=== PATIENT | female | born 1975 | race Caucasian/White ===

== ENCOUNTER 2019-06-24 09:19 | Inpatient (IN) | payer MEDICAID ==
[~2019-06-24] VITALS: Ht 175.3 cm; Wt 101.0 kg
[2019-06-24 11:45] LABS: BASOPHILS % (AUTO) 0.7 % (0-1); EOSINOPHILS % (AUTO) 0.7 % (0-6); HEMATOCRIT 26.1 % (35.0-45.0); HEMOGLOBIN 7.5 g/dl (12.0-16.0); LYMPHOCYTES # (AUTO) 0.4 X10'3 (1.1-4.8); LYMPHOCYTES % (AUTO) 7.7 % (21-51); MEAN CORPUSCULAR HEMOGLOBIN 19.5 PG (27.0-31.0); MEAN CORPUSCULAR HGB CONC 28.9 g/dL (33.0-36.5); MEAN CORPUSCULAR VOLUME 67.5 FL (78-98); MEAN PLATELET VOLUME 7.9 FL (7.4-10.4); MONOCYTES # (AUTO) 0.7 X10'3 (0-0.9); MONOCYTES % (AUTO) 14.5 % (2-12); NEUTROPHILS # (AUTO) 3.5 X10'3 (1.8-7.7); NEUTROPHILS % (AUTO) 76.4 % (42-75); PLATELET COUNT 252 X10'3 (140-440); RED BLOOD COUNT 3.87 X10'6 (4.20-5.60); RED CELL DISTRIBUTION WIDTH 18.7 % (11.5-14.5); WHITE BLOOD COUNT 4.6 X10'3 (4.5-11.0)
[2019-06-24 11:48] LABS: PARTIAL THROMBOPLASTIN TIME 26 SECONDS (22-32)
[2019-06-24 11:50] LABS: ALANINE AMINOTRANSFERASE 42 U/L (12-78); ALBUMIN 3.1 G/DL (3.4-5.0); ALBUMIN/GLOBULIN RATIO 0.7 (1.1-1.5); ALKALINE PHOSPHATASE 123 IU/L (46-116); ANION GAP 13 (8-16); ASPARTATE AMINO TRANSFERASE 62 U/L (10-37); BILIRUBIN,TOTAL 0.6 MG/DL (0.1-1.0); BLOOD UREA NITROGEN 18 MG/DL (7-18); BUN/CREATININE RATIO 15.4 (6.6-38.0); CALCIUM 8.3 MG/DL (8.5-10.1); CHLORIDE 104 MMOL/L (99-107); CREATININE 1.17 MG/DL (0.40-0.90); GLUCOSE 114 MG/DL (70-104); POTASSIUM 3.8 MMOL/L (3.5-5.1); SODIUM 139 MMOL/L (135-145); TOTAL CARBON DIOXIDE 21.7 MMOL/L (24-32); TOTAL PROTEIN 7.3 G/DL (6.4-8.2); eGFR 50 ML/MIN
--- NOTE | 2019-06-24 11:52 | NUR ---
PT CONTACT: RUFINA HAMMONDS [phone]
[2019-06-24] MEDS ORDERED: furosemide 10 MG/1 ML 10ml inj IV ONE (12:05)
[2019-06-24] MEDS ORDERED: nitroGLYCERIN 0.4mg/hour patch TD ONE (12:05)
[2019-06-24] MEDS ORDERED: aspirin 81mg tab.chew PO ONE (12:05)
[2019-06-24] MEDS ORDERED: carVEDilol 3.125mg tablet PO SCH (12:05)
[2019-06-24 12:06] LABS: ANISOCYTOSIS 2+; MICROCYTOSIS 2+; PLATELET ESTIMATE NORMAL
[2019-06-24 12:07] LABS: HYPOCHROMASIA 1+; LARGE PLATELETS FEW
[2019-06-24] MEDS ORDERED: mag hydrox/Alum hydrox/simeth 30ml oral suspension PO PRN (12:50)
[2019-06-24] MEDS ORDERED: acetaminophen 325mg tablet PO PRN (12:50)
[2019-06-24] MEDS ORDERED: ondansetron/PF 4mg/2ml inj IV PRN (12:50)
[2019-06-24] MEDS ORDERED: magnesium hydroxide 30ml (MOM) UD suspension PO PRN (12:50)
--- NOTE | 2019-06-24 13:14 | NUR ---
nitriles lab technician at bedside.
[2019-06-24 13:22] LABS: ETHANOL 0.213 GM/DL (0.0-0.010)
[2019-06-24] MEDS ORDERED: NO HOME MEDS (13:47)
--- NOTE | 2019-06-24 14:22 | NUR ---
CALL TO SISTER KAY FOR MEDICATION LIST, NO ANSWER, WILL CONTINUE TO TRY.
[2019-06-24] MEDS ORDERED: dextrose 50%-water 50ml dispensing syringe IV PRN (14:35)
[2019-06-24] MEDS ORDERED: thiamine 100mg/ml 2ml inj. IV ONE (14:35)
[2019-06-24 16:15] VITALS: BP 107/73
--- NOTE | 2019-06-24 16:15 | NUR ---
Patient arrive to PCU in room 3026Z via gurney and Nurse. Patients VS BP:107/73, HR:92, RR:18, O2:96%RA, Temp:98.7 oral. Bilateral lower ext pitting edema noted as well as crackles in base of bilateral lungs. Patient could not recall home medications and state she has been out of medications since Thanksgiving. Patient states SOB when ambulating and hip pain due to a fall from childhood. A 2RN skin assessment was completed as well as a MRSA nasal swab. All patients belongings were collected and put in bag in patients room. Patient is resting comfortably sleeping. Will continue to monitor.
[2019-06-24 16:18] LABS: URINE AMPHETAMINE SCREEN NEGATIVE (Neg); URINE BARBITUATE SCREEN NEGATIVE (Neg); URINE BENZODIAZEPINES SCREEN NEGATIVE (Neg); URINE CANNABINOID SCREEN POSITIVE (Neg); URINE COCAINE SCREEN NEGATIVE (Neg); URINE METHADONE SCREEN NEGATIVE (Neg); URINE OPIATE SCREEN NEGATIVE (Neg); URINE PHENCYCLIDINE SCREEN NEGATIVE (Neg)
[2019-06-24 18:00] VITALS: BP 101/62
--- NOTE | 2019-06-24 18:29 | NUR ---
Orientee documentation: I have reviewed and agree with all interventions, assessments performed and documented by ADOLPH Chavez. Orientee Medication Administration: For this medication-pass time frame, all medication were reviewed, dispensed, administered and documented per hospital policy by ADOLPH Chavez.
--- NOTE | 2019-06-24 18:41 | NUR ---
Problems reprioritized. Patient report given, questions answered & plan of care reviewed with Shilpa FARFAN. Patient stable at transfer of care.
--- NOTE | 2019-06-24 18:43 | NUR ---
Patient in room PCU 3023. I have received report from Tatiana FARFAN and had the opportunity to ask questions and assume patient care.
[2019-06-24] MEDS: carvedilol 6.25mg tablet PO SCH (19:15)
[2019-06-24] MEDS: furosemide 40mg/4ml inj IV SCH (19:16)
[2019-06-24] MEDS: LORazepam 2 mg/ml vial IV PRN ×3 (19:16→23:29)
[2019-06-24] MEDS ORDERED: heparin, porcine 5000 units/ml vial SQ SCH (20:00)
[2019-06-24 22:00] VITALS: BP 103/59
[2019-06-25] VITALS (11 sets, daily range): BP systolic 88–137; BP diastolic 56–89
[2019-06-25] MEDS: LORazepam 2 mg/ml vial IV PRN ×3 (01:17→06:55)
[2019-06-25 06:13] LABS: MEAN CORPUSCULAR HEMOGLOBIN 19.6 PG (27.0-31.0); MEAN CORPUSCULAR HGB CONC 29.2 g/dL (33.0-36.5); MEAN CORPUSCULAR VOLUME 67.2 FL (78-98); MEAN PLATELET VOLUME 8.2 FL (7.4-10.4); PLATELET COUNT 226 X10'3 (140-440); RED BLOOD COUNT 3.42 X10'6 (4.20-5.60); RED CELL DISTRIBUTION WIDTH 18.6 % (11.5-14.5); WHITE BLOOD COUNT 3.6 X10'3 (4.5-11.0)
[2019-06-25 06:16] LABS: ALBUMIN 2.8 G/DL (3.4-5.0); ANION GAP 5 (8-16); BLOOD UREA NITROGEN 26 MG/DL (7-18); BUN/CREATININE RATIO 18.6 (6.6-38.0); CALCIUM 8.6 MG/DL (8.5-10.1); CHLORIDE 103 MMOL/L (99-107); GLUCOSE 128 MG/DL (70-104); SODIUM 139 MMOL/L (135-145); TOTAL CARBON DIOXIDE 31.1 MMOL/L (24-32); eGFR 41 ML/MIN
--- NOTE | 2019-06-25 06:30 | NUR ---
Patient in room PCU 3023. I have received report from ADOLPH PATTERSON and had the opportunity to ask questions and assume patient care.
--- NOTE | 2019-06-25 06:36 | NUR ---
PAGER ID: [phone] MESSAGE: Patient Stephanie Brown Rm [id number] Patient has critical Hbg of 6.7 and Hct is 23.0 Shilpa FARFAN ext, [phone]
--- NOTE | 2019-06-25 06:52 | NUR ---
Problems reprioritized. Patient report given, questions answered & plan of care reviewed with Jordan RN.
[2019-06-25 07:28] LABS: TOTAL CELLS COUNTED 100
[2019-06-25 07:29] LABS: ANISOCYTOSIS 2+; HYPOCHROMASIA 2+; MICROCYTOSIS 2+; PLATELET ESTIMATE NORMAL
--- NOTE | 2019-06-25 07:36 | NUR ---
PAGER ID: [phone] MESSAGE: DR. BENITO, [id number]/CASSIUS. DO YOU STILL WANT HER TO HAVE HEPARIN SUB CUTANEOUS WITH H+H 6.7/23.0? [id number]. TY
[2019-06-25] MEDS ORDERED: folic acid inj. 2 MG, thiamine inj. 100 MG, MVI, adult No.4 with vit. K 10 ML in dextro... IV SCH ×4 (08:00)
[2019-06-25] MEDS: furosemide 40mg/4ml inj IV SCH ×2 (09:05→19:27)
[2019-06-25] MEDS: multivitamins, therapeutics tablet PO SCH (09:07)
[2019-06-25] MEDS: folic acid 1mg tablet PO SCH (09:07)
[2019-06-25] MEDS: carvedilol 6.25mg tablet PO SCH ×2 (09:07→19:27)
[2019-06-25] MEDS: thiamine 100mg tablet PO SCH (09:08)
--- NOTE | 2019-06-25 09:32 | NUR ---
PAGER ID: [phone] MESSAGE: DR. BENITO, 1559U/CASSIUS, PACKED CELLS READY. CONSENT IN FRONT OF CHART. NEED INFORMED CONSENT PLEASE. DEVIN [id number]. TY
[2019-06-25 10:40] LABS: HEMOGLOBIN 6.7 g/dl (12.0-16.0)
--- NOTE | 2019-06-25 11:14 | NUR ---
PAGER ID: [phone] MESSAGE: DR. BENITO,[id number]/CASSIUS, HAVE UNIT PACKED CELL WAITING FOR TRANSFUSION. NEED INFORMED CONSENT. BLOOD CONSENT IS IN THE FRONT OF CHART. DEVIN [id number]. TY
[2019-06-25] MEDS: pantoprazole 40mg Tablet.DR PO SCH (14:39)
--- NOTE | 2019-06-25 16:03 | NUR ---
SPOKE TO MARITA WOODALL OVER TELEPHONE. SHE HAD FAXED MED LIST, BIT WAS NOT READABLE. STATES "I WILL BRING ALL HER MEDICATIONS TO [facility] TOMORROW" . EXPLAINED THE PROCESS ONCE THE MEDS ARE HERE. VERBALIZED UNDERSTANDING.
--- NOTE | 2019-06-25 18:12 | NUR ---
Problems reprioritized. Patient report given, questions answered & plan of care reviewed with ADOLPH SPRINGER.
--- NOTE | 2019-06-25 18:30 | NUR ---
Patient in room PCU 3023. I have received report from Jordan FARFAN and had the opportunity to ask questions and assume patient care.
[2019-06-26 02:00] VITALS: BP 109/76
[2019-06-26 05:30] LABS: MEAN PLATELET VOLUME 8.2 FL (7.4-10.4); RED BLOOD COUNT 3.92 X10'6 (4.20-5.60)
[2019-06-26 05:31] LABS: HEMATOCRIT 26.4 % (35.0-45.0); MEAN CORPUSCULAR HEMOGLOBIN 20.4 PG (27.0-31.0); MEAN CORPUSCULAR HGB CONC 30.2 g/dL (33.0-36.5); MEAN CORPUSCULAR VOLUME 67.4 FL (78-98); PLATELET COUNT 199 X10'3 (140-440); RED CELL DISTRIBUTION WIDTH 19.2 % (11.5-14.5)
[2019-06-26 05:54] LABS: ALBUMIN 2.8 G/DL (3.4-5.0); ANION GAP 7 (8-16); BLOOD UREA NITROGEN 34 MG/DL (7-18); BUN/CREATININE RATIO 23.3 (6.6-38.0); CALCIUM 8.4 MG/DL (8.5-10.1); CHLORIDE 101 MMOL/L (99-107); CREATININE 1.46 MG/DL (0.40-0.90); GLUCOSE 138 MG/DL (70-104); SODIUM 138 MMOL/L (135-145); TOTAL CARBON DIOXIDE 30.2 MMOL/L (24-32); eGFR 39 ML/MIN
[2019-06-26 05:56] LABS: POTASSIUM 4.3 MMOL/L (3.5-5.1)
[2019-06-26 06:32] LABS: NUCLEATED RED BLOOD CELLS 1 /100WBC (0-0); PLATELET ESTIMATE NORMAL; TOTAL CELLS COUNTED 100
--- NOTE | 2019-06-26 06:32 | NUR ---
Problems reprioritized. Patient report given, questions answered & plan of care reviewed with Siomara FARFAN.
[2019-06-26 06:33] LABS: ANISOCYTOSIS 2+; HYPOCHROMASIA 2+; MICROCYTOSIS 2+
--- NOTE | 2019-06-26 06:40 | NUR ---
Patient in room PCU 3023. I have received report from Renee FARFAN and had the opportunity to ask questions and assume patient care. Patient sleeping and in no distress. Will continue to monitor.
[2019-06-26 07:00] VITALS: BP 116/82
[2019-06-26] MEDS: furosemide 40mg/4ml inj IV SCH ×3 (08:00→19:28)
[2019-06-26] MEDS: thiamine 100mg tablet PO SCH (08:52)
[2019-06-26] MEDS: folic acid 1mg tablet PO SCH (08:52)
[2019-06-26] MEDS: carvedilol 6.25mg tablet PO SCH ×2 (08:52→19:28)
[2019-06-26] MEDS: multivitamins, therapeutics tablet PO SCH (08:53)
[2019-06-26] MEDS: pantoprazole 40mg Tablet.DR PO SCH (08:53)
[2019-06-26 11:00] VITALS: BP 108/68
[2019-06-26] MEDS ORDERED: LORazepam 2 mg/ml vial IV PRN (14:35)
[2019-06-26 15:00] VITALS: BP 124/56
[2019-06-26 17:07] LABS: OCCULT BLOOD STOOL NEGATIVE (Neg)
[2019-06-26] MEDS ORDERED: SPIR25TA5 PO (17:14)
[2019-06-26] MEDS ORDERED: PYRI25TA4 PO (17:14)
[2019-06-26] MEDS ORDERED: CARV3.12 PO (17:14)
[2019-06-26] MEDS ORDERED: FURO40TA4 PO (17:14)
[2019-06-26] MEDS ORDERED: LISI10TA4 PO (17:14)
[2019-06-26] MEDS ORDERED: POTA10TA36 PO (17:14)
[2019-06-26] MEDS ORDERED: FOLI0.4T2 PO (17:14)
--- NOTE | 2019-06-26 17:19 | NUR ---
PAGER ID: [phone] MESSAGE: re [id number] Stephanie Tenorio. Pts home medications have been reconciled. Please review. Also, occult stool was negative. Thanks, Siomara
[2019-06-26 18:00] VITALS: BP 128/79
[2019-06-26] MEDS: LORazepam 1 MG tablet PO PRN ×2 (19:32→21:04)
[2019-06-26 22:00] VITALS: BP 120/82
[2019-06-27] MEDS: LORazepam 1 MG tablet PO PRN ×3 (00:35→07:52)
[2019-06-27 02:00] VITALS: BP 107/78
[2019-06-27 05:16] LABS: HEMOGLOBIN 8.4 g/dl (12.0-16.0); MEAN CORPUSCULAR HGB CONC 29.9 g/dL (33.0-36.5)
[2019-06-27 05:18] LABS: HEMATOCRIT 27.9 % (35.0-45.0); MEAN CORPUSCULAR HEMOGLOBIN 20.4 PG (27.0-31.0); MEAN PLATELET VOLUME 8.4 FL (7.4-10.4); PLATELET COUNT 216 X10'3 (140-440); RED CELL DISTRIBUTION WIDTH 19.6 % (11.5-14.5); WHITE BLOOD COUNT 4.1 X10'3 (4.5-11.0)
[2019-06-27 05:30] LABS: ALBUMIN 2.9 G/DL (3.4-5.0); ANION GAP 5 (8-16); BLOOD UREA NITROGEN 38 MG/DL (7-18); BUN/CREATININE RATIO 25.3 (6.6-38.0); CALCIUM 8.1 MG/DL (8.5-10.1); CHLORIDE 98 MMOL/L (99-107); GLUCOSE 130 MG/DL (70-104); POTASSIUM 3.8 MMOL/L (3.5-5.1); SODIUM 138 MMOL/L (135-145); TOTAL CARBON DIOXIDE 34.8 MMOL/L (24-32); eGFR 38 ML/MIN
[2019-06-27 06:00] VITALS: BP 105/72
--- NOTE | 2019-06-27 06:16 | NUR ---
Problems reprioritized. Patient report given, questions answered & plan of care reviewed with Kathy Murphy RN.
[2019-06-27 06:22] LABS: ANISOCYTOSIS 2+; MICROCYTOSIS 2+; PLATELET ESTIMATE NORMAL; TOTAL CELLS COUNTED 100
[2019-06-27 06:23] LABS: HYPOCHROMASIA 1+; POLYCHROMASIA FEW
--- NOTE | 2019-06-27 06:30 | NUR ---
Patient in room PCU 3023. I have received report from ADOLPH Tapia and had the opportunity to ask questions and assume patient care.
--- NOTE | 2019-06-27 06:59 | NUR ---
Patient in room PCU 3023. I have received report from Regina FARFAN and had the opportunity to ask questions and assume patient care.
[2019-06-27] MEDS: multivitamins, therapeutics tablet PO SCH (07:42)
[2019-06-27] MEDS: pantoprazole 40mg Tablet.DR PO SCH (07:42)
[2019-06-27] MEDS: folic acid 1mg tablet PO SCH (07:42)
[2019-06-27] MEDS: thiamine 100mg tablet PO SCH (07:43)
[2019-06-27] MEDS: carvedilol 6.25mg tablet PO SCH (07:43)
[2019-06-27] MEDS: furosemide 40mg/4ml inj IV SCH (07:44)
[2019-06-27 11:00] VITALS: BP 91/55
[2019-06-27] MEDS ORDERED: PANT40TA4 PO (12:08)
[2019-06-27] MEDS ORDERED: CARV6.253 PO (12:08)
--- NOTE | 2019-06-27 14:28 | NUR ---
Orientee documentation: I have reviewed and agree with all interventions, assessments performed and documented by ADOLPH Terrell.
--- NOTE | 2019-06-27 14:28 | NUR ---
Orientee Medication Administration: For this medication-pass time frame, all medication were reviewed, dispensed, administered and documented per hospital policy by ADOLPH Terrell.
--- NOTE | 2019-06-27 15:21 | NUR ---
PIV discontinued and clean dry dressing in place, walked down to lobby to private vehicle @ 1832
--- NOTE | 2019-06-27 15:22 | NUR ---
Patient is stable for discharge per MD orders. All discharge instructions reveied and questions answered. Patients prescriptions e scripted to les in [facility] pharmacy. PIV discontinued, Tele monitor discontinued and belongings gathered and sent with patient. Patient wheeled to front of hospital by hospital personal and entered a private vehicle with family member.
[2019-06-28] MEDS ORDERED: LORazepam 1 MG tablet PO PRN (14:35)
[2019-06-28] MEDS ORDERED: LORazepam 2 mg/ml vial IV PRN (14:35)
== END 2019-06-27 14:28 | disposition home or self-care (01) | DRG 194 ==
LOC: ER 09:19 → ED HOLD 12:49 → PCU 3S 16:14
PROVIDERS: ADMIT Family Medicine; ATTEND Family Medicine
PROC: 30233N1 Transfusion of Nonautologous Red Blood Cells into Peripheral Vein, Percutaneous Approach (ICD-10-PCS; principal; 2019-06-25)
DX: I13.0 Hypertensive heart and chronic kidney disease with heart failure and stage 1 through stage 4 chronic kidney disease, or unspecified chronic kidney disease (principal); I21.A1 Myocardial infarction type 2; F10.129 Alcohol abuse with intoxication, unspecified; F12.90 Cannabis use, unspecified, uncomplicated; D50.9 Iron deficiency anemia, unspecified; F15.10 Other stimulant abuse, uncomplicated; N18.9 Chronic kidney disease, unspecified; I50.23 Acute on chronic systolic (congestive) heart failure; F17.210 Nicotine dependence, cigarettes, uncomplicated; Z88.0 Allergy status to penicillin; Z71.51 Drug abuse counseling and surveillance of drug abuser
CPT/HCPCS: 36415; 36430; 71046; 76937; 80048; 80053; 80305; 80320; 82272; 83880; 84484; 85025; 85610; 85730; 86885; 86900; 86901; 86920; 87081; 93005; 93306; 96374; 99285; G0378; J1644; J1940; J2060; J3411; P9016

== ENCOUNTER 2019-10-05 05:30 | Inpatient (IN) | payer MEDICAID ==
[2019-10-05] VITALS (15 sets, daily range): BP systolic 82–104; BP diastolic 35–68
[~2019-10-05] VITALS: Ht 172.7 cm; Wt 82.5 kg
[~2019-10-05 05:30] MED LIST: CARV6.253 PO; FOLI0.4T2 PO; FURO40TA4 PO; LISI10TA4 PO; NO HOME MEDS; PANT40TA4 PO; POTA10TA36 PO; PYRI25TA4 PO; SPIR25TA5 PO
[2019-10-05] MEDS ORDERED: pantoprazole 40 MG vial IV ONE (05:45)
[2019-10-05] MEDS ORDERED: CARV3.122 PO (05:47)
[2019-10-05] MEDS ORDERED: ONDA8TAB65 PO (05:47)
[2019-10-05 05:56] LABS: CLARITY,URINE SLIGHTLY CLOUDY (Clear); COLOR,URINE YELLOW (Yellow); GLUCOSE, URINE 100 mg/dl (Neg); KETONES,URINE NEGATIVE (Neg); LEUKOCYTE ESTERASE ,URINE MODERATE (Neg); NITRITES, URINE NEGATIVE (Neg); OCCULT BLOOD,URINE LARGE (Neg); PH,URINE 5.5 (4.8-8.0); PROTEIN,URINE 100 mg/dl (Neg); UROBILINOGEN,URINE 0.2 E.U/dL (0.2-1.0)
[2019-10-05 06:01] LABS: UA COLLECTION TYPE FOLEY CATH
[2019-10-05 06:03] LABS: MUCUS STRANDS FEW /LPF (Neg); SQUAMOUS EPITHELIAL CELL,UR MODERATE /LPF (FEW); URINE HCG NEGATIVE (NEG)
[2019-10-05 06:04] LABS: AMORPHOUS URATES 2+; BACTERIA,URINE FEW /HPF (Neg); RENAL CELLS, URINE FEW /HPF; TRANSITIONAL EPI CELLS,URINE FEW /HPF
[2019-10-05] MEDS: pantoprazole 40MG/NS 100ML BAG 100 ML IV SCH ×4 (06:04→20:39)
[2019-10-05 06:25] LABS: BASOPHILS % (AUTO) 0.3 % (0-1); EOSINOPHILS % (AUTO) 0.4 % (0-6); HEMATOCRIT 26.1 % (35.0-45.0); HEMOGLOBIN 8.8 g/dl (12.0-16.0); LYMPHOCYTES # (AUTO) 0.5 X10'3 (1.1-4.8); MEAN CORPUSCULAR HEMOGLOBIN 30.3 PG (27.0-31.0); MEAN CORPUSCULAR HGB CONC 33.7 g/dL (33.0-36.5); MEAN CORPUSCULAR VOLUME 89.9 FL (78-98); MEAN PLATELET VOLUME 8.3 FL (7.4-10.4); MONOCYTES # (AUTO) 0.5 X10'3 (0-0.9); MONOCYTES % (AUTO) 7.1 % (2-12); NEUTROPHILS # (AUTO) 5.6 X10'3 (1.8-7.7); NEUTROPHILS % (AUTO) 85.2 % (42-75); PLATELET COUNT 154 X10'3 (140-440); RED CELL DISTRIBUTION WIDTH 15.8 % (11.5-14.5); WHITE BLOOD COUNT 6.6 X10'3 (4.5-11.0)
[2019-10-05] MEDS ORDERED: calcium chloride 100 MG/1 ML inj IV ONE (06:30)
[2019-10-05 06:32] LABS: ALANINE AMINOTRANSFERASE 54 U/L (12-78); ALBUMIN 3.4 G/DL (3.4-5.0); ALBUMIN/GLOBULIN RATIO 1.2 (1.1-1.5); ALKALINE PHOSPHATASE 164 IU/L (46-116); ANION GAP 24 (8-16); ASPARTATE AMINO TRANSFERASE 113 U/L (10-37); BILIRUBIN,TOTAL 1.5 MG/DL (0.1-1.0); BLOOD UREA NITROGEN 88 MG/DL (7-18); CALCIUM 7.7 MG/DL (8.5-10.1); CHLORIDE 79 MMOL/L (99-107); GLUCOSE 165 MG/DL (70-104); MAGNESIUM 1.2 MG/DL (1.5-2.4); TOTAL PROTEIN 6.3 G/DL (6.4-8.2); eGFR 5 ML/MIN
[2019-10-05 06:33] LABS: POTASSIUM 5.6 MMOL/L (3.5-5.1)
[2019-10-05 06:35] LABS: SODIUM 115 MMOL/L (135-145)
[2019-10-05 06:36] LABS: TOTAL CARBON DIOXIDE 12.5 MMOL/L (24-32)
[2019-10-05] MEDS ORDERED: normal saline 1000ml 1,000 ML IV SCH (06:38)
[2019-10-05] MEDS ORDERED: acetaminophen 650mg rectal suppository RC PRN (06:40)
[2019-10-05] MEDS ORDERED: magnesium hydroxide 30ml (MOM) UD suspension PO PRN (06:40)
[2019-10-05] MEDS ORDERED: octreotide inj. 1,250 MCG in normal saline 250ml IV soln 250 ML IV SCH (06:40)
[2019-10-05] MEDS ORDERED: ondansetron/PF 4mg/2ml inj IV PRN (06:40)
[2019-10-05] MEDS ORDERED: potassium Cl 20 mEq SR tablet PO PRN (06:40)
[2019-10-05] MEDS ORDERED: LIDOcaine 2% 10ml TOPICAL JELLY (Urojet) TP ONE (06:40)
[2019-10-05] MEDS ORDERED: potassium CL 10mEq/100ml bag 100 ML IV PRN ×2 (06:40)
[2019-10-05] MEDS: K, MAG and/or Phos replacement - Verify level? MC SCH ×2 (06:40→08:00)
[2019-10-05] MEDS ORDERED: acetaminophen 325mg tablet PO PRN ×2 (06:40)
[2019-10-05] MEDS ORDERED: octreotide inj. 1,250 MCG in normal saline 250ml IV soln 243.75 ML IV SCH (06:50)
--- NOTE | 2019-10-05 07:55 | NUR ---
Received from ER. Report from Iris. Oriented pt to unit and plan of care. Py appears fatigued but able to answer questions.
[2019-10-05 09:22] LABS: CLARITY,URINE SLIGHTLY CLOUDY (Clear); COLOR,URINE YELLOW (Yellow); GLUCOSE, URINE 100 mg/dl (Neg); KETONES,URINE NEGATIVE (Neg); LEUKOCYTE ESTERASE ,URINE MODERATE (Neg); NITRITES, URINE NEGATIVE (Neg); OCCULT BLOOD,URINE LARGE (Neg); PROTEIN,URINE 100 mg/dl (Neg); UROBILINOGEN,URINE 0.2 E.U/dL (0.2-1.0)
[2019-10-05 09:28] LABS: UA COLLECTION TYPE FOLEY CATH
[2019-10-05 09:29] LABS: WBC,URINE 30-50 /HPF (0-4)
[2019-10-05 09:30] LABS: BACTERIA,URINE FEW /HPF (Neg); MUCUS STRANDS FEW /LPF (Neg); SQUAMOUS EPITHELIAL CELL,UR FEW /LPF (FEW)
[2019-10-05 09:47] LABS: UA EOSINOPHILS NO EOS /HPF
[2019-10-05] MEDS: thiamine inj. 100 MG, MVI, adult No.4 with vit. K 10 ML in dextrose 5% water 500ml 500 ML IV SCH ×3 (11:35)
[2019-10-05] MEDS ORDERED: fentaNYL/PF 50MCG/1 ML 2ML syringe ONE (11:44)
[2019-10-05] MEDS ORDERED: LIDOcaine Viscous 15ml cup ONE (11:44)
[2019-10-05] MEDS ORDERED: MIDAZolam 5mg/5ml vial ONE (11:44)
[2019-10-05 12:24] LABS: ALBUMIN 3.1 G/DL (3.4-5.0); ANION GAP 17 (8-16); BLOOD UREA NITROGEN 86 MG/DL (7-18); BUN/CREATININE RATIO 11.3 (6.6-38.0); CALCIUM 8.4 MG/DL (8.5-10.1); CHLORIDE 86 MMOL/L (99-107); GLUCOSE 81 MG/DL (70-104); POTASSIUM 5.1 MMOL/L (3.5-5.1); eGFR 6 ML/MIN
[2019-10-05 12:34] LABS: SODIUM 116 MMOL/L (135-145)
[2019-10-05] MEDS: CefTRIAXone/D5W-Rocephin 1gm 50 ML IV SCH (15:14)
[2019-10-05] MEDS: sodium bicarbonate (8.4%) inj. 150 MEQ in dextrose 5%-water 1,000 ML IV SCH (15:15)
--- NOTE | 2019-10-05 17:31 | NUR ---
EGD performed at bedside. BP dropped to 70/30's. 1L of NS bolus started. BP now up to 100/50's. Pt has had 2 small BM's today, both brown, no blood noted.
[2019-10-05] MEDS ORDERED: chlordiazePOXIDE 25mg capsule PO PRN (17:45)
--- NOTE | 2019-10-05 18:18 | NUR ---
Problems reprioritized. Patient report given, questions answered & plan of care reviewed with Keaton.
[2019-10-05 20:40] LABS: HEMATOCRIT 26.4 % (35.0-45.0); HEMOGLOBIN 8.9 g/dl (12.0-16.0); MEAN CORPUSCULAR HGB CONC 33.6 g/dL (33.0-36.5); MEAN CORPUSCULAR VOLUME 89.3 FL (78-98); MEAN PLATELET VOLUME 8.2 FL (7.4-10.4); PLATELET COUNT 125 X10'3 (140-440); RED BLOOD COUNT 2.96 X10'6 (4.20-5.60); RED CELL DISTRIBUTION WIDTH 16.7 % (11.5-14.5)
[2019-10-06] VITALS (24 sets, daily range): BP systolic 80–117; BP diastolic 42–70
--- NOTE | 2019-10-06 00:25 | NUR ---
Patient in room CICU 2009. I have received report from Asael FARFAN and had the opportunity to ask questions and assume patient care for remainder of shift.
[2019-10-06] MEDS: pantoprazole 40MG/NS 100ML BAG 100 ML IV SCH ×3 (01:34→11:44)
[2019-10-06] MEDS: sodium bicarbonate (8.4%) inj. 150 MEQ in dextrose 5%-water 1,000 ML IV SCH ×3 (01:35→20:50)
[2019-10-06] MEDS: morphine 2 MG/ML inj. syringe IV PRN ×3 (04:04→18:56)
[2019-10-06 05:20] LABS: PARTIAL THROMBOPLASTIN TIME 30 SECONDS (22-32)
[2019-10-06 05:34] LABS: ALANINE AMINOTRANSFERASE 48 U/L (12-78); ALBUMIN 2.8 G/DL (3.4-5.0); ALKALINE PHOSPHATASE 162 IU/L (46-116); ANION GAP 15 (8-16); ASPARTATE AMINO TRANSFERASE 83 U/L (10-37); BILIRUBIN,TOTAL 2.1 MG/DL (0.1-1.0); BLOOD UREA NITROGEN 84 MG/DL (7-18); BUN/CREATININE RATIO 11.8 (6.6-38.0); CALCIUM 7.8 MG/DL (8.5-10.1); CHLORIDE 86 MMOL/L (99-107); CREATININE 7.11 MG/DL (0.40-0.90); GLUCOSE 125 MG/DL (70-104); PHOSPHORUS 3.5 MG/DL (2.3-4.5); POTASSIUM 4.2 MMOL/L (3.5-5.1); TOTAL CARBON DIOXIDE 17.9 MMOL/L (24-32); TOTAL PROTEIN 5.7 G/DL (6.4-8.2); eGFR 6 ML/MIN
[2019-10-06 05:38] LABS: SODIUM 119 MMOL/L (135-145)
[2019-10-06 05:39] LABS: MAGNESIUM 0.9 MG/DL (1.5-2.4)
[2019-10-06] MEDS ORDERED: magnesium 2GM in 50ml NS 50 ML IV ONE (06:15)
--- NOTE | 2019-10-06 06:35 | NUR ---
Problems reprioritized. Patient report given, questions answered & plan of care reviewed with Siomara/Frantz FARFAN.
[2019-10-06 06:58] LABS: BASOPHILS % (AUTO) 0.5 % (0-1); EOSINOPHILS # (AUTO) 0.1 X10'3 (0-0.9); EOSINOPHILS % (AUTO) 1.1 % (0-6); HEMATOCRIT 23.7 % (35.0-45.0); LYMPHOCYTES # (AUTO) 0.6 X10'3 (1.1-4.8); MEAN CORPUSCULAR HEMOGLOBIN 30.1 PG (27.0-31.0); MEAN CORPUSCULAR HGB CONC 33.9 g/dL (33.0-36.5); MONOCYTES # (AUTO) 0.6 X10'3 (0-0.9); MONOCYTES % (AUTO) 12.1 % (2-12); NEUTROPHILS # (AUTO) 3.7 X10'3 (1.8-7.7); NEUTROPHILS % (AUTO) 74.3 % (42-75); PLATELET COUNT 118 X10'3 (140-440); RED BLOOD COUNT 2.67 X10'6 (4.20-5.60); RED CELL DISTRIBUTION WIDTH 16.7 % (11.5-14.5)
[2019-10-06] MEDS: K, MAG and/or Phos replacement - Verify level? MC SCH (08:00)
[2019-10-06] MEDS: thiamine inj. 100 MG, MVI, adult No.4 with vit. K 10 ML in dextrose 5% water 500ml 500 ML IV SCH ×3 (08:00)
[2019-10-06] MEDS: thiamine 100mg tablet PO SCH (09:17)
[2019-10-06] MEDS: multivitamins, therapeutics tablet PO SCH (09:17)
[2019-10-06] MEDS: CefTRIAXone/D5W-Rocephin 1gm 50 ML IV SCH (09:17)
[2019-10-06] MEDS ORDERED: normal saline 1000ml 1,000 ML IV ONE (17:05)
--- NOTE | 2019-10-06 18:24 | NUR ---
Patient in room CICU 2009. I have received report from ADOLPH Stringer and had the opportunity to ask questions and assume patient care. Patient was sleeping when I went into room and woke easily, she is now on the bedpan.
[2019-10-06] MEDS: pantoprazole 40 MG vial IV SCH (20:50)
[2019-10-07] VITALS (17 sets, daily range): BP systolic 92–129; BP diastolic 47–99
[2019-10-07] MEDS: morphine 2 MG/ML inj. syringe IV PRN ×2 (00:04→08:17)
[2019-10-07 04:59] LABS: BASOPHILS % (AUTO) 0.2 % (0-1); EOSINOPHILS # (AUTO) 0.1 X10'3 (0-0.9); EOSINOPHILS % (AUTO) 1.5 % (0-6); HEMATOCRIT 25.3 % (35.0-45.0); HEMOGLOBIN 8.4 g/dl (12.0-16.0); LYMPHOCYTES # (AUTO) 0.7 X10'3 (1.1-4.8); LYMPHOCYTES % (AUTO) 12.8 % (21-51); MEAN CORPUSCULAR HEMOGLOBIN 29.7 PG (27.0-31.0); MEAN CORPUSCULAR HGB CONC 33.3 g/dL (33.0-36.5); MEAN CORPUSCULAR VOLUME 89.3 FL (78-98); MEAN PLATELET VOLUME 8.3 FL (7.4-10.4); MONOCYTES # (AUTO) 0.5 X10'3 (0-0.9); MONOCYTES % (AUTO) 9.7 % (2-12); NEUTROPHILS # (AUTO) 3.9 X10'3 (1.8-7.7); NEUTROPHILS % (AUTO) 75.8 % (42-75); PLATELET COUNT 107 X10'3 (140-440); RED BLOOD COUNT 2.83 X10'6 (4.20-5.60); RED CELL DISTRIBUTION WIDTH 16.9 % (11.5-14.5); WHITE BLOOD COUNT 5.1 X10'3 (4.5-11.0)
[2019-10-07 05:11] LABS: PARTIAL THROMBOPLASTIN TIME 27 SECONDS (22-32)
[2019-10-07 05:15] LABS: ALANINE AMINOTRANSFERASE 43 U/L (12-78); ALBUMIN 2.5 G/DL (3.4-5.0); ALBUMIN/GLOBULIN RATIO 0.8 (1.1-1.5); ALKALINE PHOSPHATASE 159 IU/L (46-116); ANION GAP 12 (8-16); ASPARTATE AMINO TRANSFERASE 64 U/L (10-37); BILIRUBIN,TOTAL 2.1 MG/DL (0.1-1.0); BLOOD UREA NITROGEN 75 MG/DL (7-18); BUN/CREATININE RATIO 13.5 (6.6-38.0); CALCIUM 7.6 MG/DL (8.5-10.1); CHLORIDE 88 MMOL/L (99-107); CREATININE 5.55 MG/DL (0.40-0.90); GLUCOSE 112 MG/DL (70-104); MAGNESIUM 1.1 MG/DL (1.5-2.4); PHOSPHORUS 2.9 MG/DL (2.3-4.5); POTASSIUM 3.4 MMOL/L (3.5-5.1); SODIUM 123 MMOL/L (135-145); TOTAL CARBON DIOXIDE 23.2 MMOL/L (24-32); TOTAL PROTEIN 5.5 G/DL (6.4-8.2); eGFR 8 ML/MIN
--- NOTE | 2019-10-07 06:10 | NUR ---
Problems reprioritized. Patient report given, questions answered & plan of care reviewed with ADOLPH Galindo.
--- NOTE | 2019-10-07 06:15 | NUR ---
Received report from Mallorie FARFAN, [facility] care.
--- NOTE | 2019-10-07 07:30 | NUR ---
Collected stool specimen to be sent for occult. Hx: Recent GI bleed and hemorrhoid. Addendum: 10/07/19 at 0742 by Josie Patton RN Amended: Links added.
[2019-10-07] MEDS: sodium bicarbonate (8.4%) inj. 150 MEQ in dextrose 5%-water 1,000 ML IV SCH (08:15)
[2019-10-07] MEDS: CefTRIAXone/D5W-Rocephin 1gm 50 ML IV SCH (08:16)
[2019-10-07] MEDS: multivitamins, therapeutics tablet PO SCH (08:17)
[2019-10-07] MEDS: thiamine 100mg tablet PO SCH (08:17)
[2019-10-07] MEDS: pantoprazole 40 MG vial IV SCH (08:17)
[2019-10-07] MEDS: folic acid 1mg tablet PO SCH (08:17)
[2019-10-07] MEDS: potassium Cl 20 mEq SR tablet PO PRN ×2 (09:03→13:28)
--- NOTE | 2019-10-07 10:38 | NUR ---
ICU rounds performed, made slitter and rewinder aware of low Mag 1.1- no orders received to replace, made aware of stool specimen obtained from patient-suspecting it's blood from hemorrhoids rather than GI bleed. According to Dr. Dobson with Na+ > 120 may transfer to Telemetry with tele.
[2019-10-07 12:04] LABS: OCCULT BLOOD STOOL POSITIVE (Neg)
--- NOTE | 2019-10-07 12:05 | NUR ---
RECEIVED TELEPHONE REPORT FROM ADOLPH ALLEN
--- NOTE | 2019-10-07 12:06 | NUR ---
Gave report to Jordan FARFAN at this time, will transfer patient to Tele room 3024B on tele #[id number].
--- NOTE | 2019-10-07 12:50 | NUR ---
Patient transferred to room 3024 B at this time, transferred care to Jordan duran RN.
--- NOTE | 2019-10-07 14:15 | NUR ---
RECEIVED FROM ICU, AGREE WITH PRIOR ASSESSMENT.
--- NOTE | 2019-10-07 18:36 | NUR ---
Problems reprioritized. Patient report given, questions answered & plan of care reviewed with ADOLPH PATTERSON.
--- NOTE | 2019-10-07 18:48 | NUR ---
Patient in room PCU 3024. I have received report from Jordan FARFAN and had the opportunity to ask questions and assume patient care. Patient was awake during report and resting comfortably.
--- NOTE | 2019-10-07 20:00 | NUR ---
Since patient has already received a total of 30mEq K-dur replacement today (one 20mEq dose and one 10mEq dose), no further replacement will be given tonight because she should have gotten a total of 30mEq replacement (10mEq x 3 doses) for a Creatinine of greater than 2.5 instead of the typical dose of 20mEq x3 doses for a Potassium of 3.4.
[2019-10-07] MEDS: lactobacillus rhamnosus 10,000 MMU CELLS/CAPSULE PO SCH (20:14)
[2019-10-07] MEDS: pantoprazole 40mg Tablet.DR PO SCH (20:14)
[2019-10-07] MEDS: morphine 4 MG/ML inj SYRINge IV PRN (20:15)
[2019-10-08] MEDS: morphine 4 MG/ML inj SYRINge IV PRN (01:16)
[2019-10-08 02:00] VITALS: BP 102/61
--- NOTE | 2019-10-08 04:39 | NUR ---
Orientee documentation: I have reviewed and agree with all interventions, assessments performed and documented by Guerline FARFAN. Orientee Medication Administration: For this medication-pass time frame, all medication were reviewed, dispensed, administered and documented per hospital policy by Guerline FARFAN.
[2019-10-08 06:05] LABS: HEMOGLOBIN 8.2 g/dl (12.0-16.0); MEAN PLATELET VOLUME 8.6 FL (7.4-10.4); MONOCYTES # (AUTO) 0.4 X10'3 (0-0.9); PLATELET COUNT 108 X10'3 (140-440); WHITE BLOOD COUNT 3.9 X10'3 (4.5-11.0)
[2019-10-08 06:09] LABS: BASOPHILS % (AUTO) 0.5 % (0-1); EOSINOPHILS % (AUTO) 0.9 % (0-6); HEMATOCRIT 24.6 % (35.0-45.0); LYMPHOCYTES # (AUTO) 0.6 X10'3 (1.1-4.8); LYMPHOCYTES % (AUTO) 16.4 % (21-51); MEAN CORPUSCULAR HGB CONC 33.5 g/dL (33.0-36.5); MEAN CORPUSCULAR VOLUME 89.6 FL (78-98); MONOCYTES % (AUTO) 10.5 % (2-12); NEUTROPHILS # (AUTO) 2.8 X10'3 (1.8-7.7); NEUTROPHILS % (AUTO) 71.7 % (42-75); RED BLOOD COUNT 2.75 X10'6 (4.20-5.60); RED CELL DISTRIBUTION WIDTH 16.6 % (11.5-14.5)
[2019-10-08 06:15] LABS: ALANINE AMINOTRANSFERASE 53 U/L (12-78); ALBUMIN 2.5 G/DL (3.4-5.0); ALBUMIN/GLOBULIN RATIO 0.8 (1.1-1.5); ALKALINE PHOSPHATASE 210 IU/L (46-116); ANION GAP 9 (8-16); ASPARTATE AMINO TRANSFERASE 89 U/L (10-37); BILIRUBIN,TOTAL 2.7 MG/DL (0.1-1.0); BLOOD UREA NITROGEN 69 MG/DL (7-18); BUN/CREATININE RATIO 16.1 (6.6-38.0); CALCIUM 7.9 MG/DL (8.5-10.1); CHLORIDE 91 MMOL/L (99-107); CREATININE 4.29 MG/DL (0.40-0.90); GLUCOSE 86 MG/DL (70-104); MAGNESIUM 1.1 MG/DL (1.5-2.4); PHOSPHORUS 2.7 MG/DL (2.3-4.5); POTASSIUM 3.8 MMOL/L (3.5-5.1); SODIUM 129 MMOL/L (135-145); TOTAL CARBON DIOXIDE 28.7 MMOL/L (24-32); TOTAL PROTEIN 5.5 G/DL (6.4-8.2); eGFR 11 ML/MIN
--- NOTE | 2019-10-08 06:26 | NUR ---
Problems reprioritized. Patient report given, questions answered & plan of care reviewed with Kathy FARFAN.
--- NOTE | 2019-10-08 06:33 | NUR ---
Patient in room PCU 3024. I have received report from ADOLPH Massey/Ashwini RN and had the opportunity to ask questions and assume patient care. Pt resting comfortably during bedside report.
[2019-10-08 07:00] VITALS: BP 107/60
[2019-10-08 07:31] LABS: ANISOCYTOSIS 1+; PLATELET ESTIMATE DECREASED; TOTAL CELLS COUNTED 100
[2019-10-08 07:32] LABS: LARGE PLATELETS FEW
[2019-10-08] MEDS: pantoprazole 40mg Tablet.DR PO SCH ×2 (08:02→19:45)
[2019-10-08] MEDS: thiamine 100mg tablet PO SCH (08:02)
[2019-10-08] MEDS: multivitamins, therapeutics tablet PO SCH (08:02)
[2019-10-08] MEDS: lactobacillus rhamnosus 10,000 MMU CELLS/CAPSULE PO SCH (08:02)
[2019-10-08] MEDS: folic acid 1mg tablet PO SCH (08:02)
[2019-10-08] MEDS: CefTRIAXone/D5W-Rocephin 1gm 50 ML IV SCH (08:03)
[2019-10-08] MEDS: morphine 2 MG/ML inj. syringe IV PRN ×2 (08:23→19:46)
[2019-10-08 11:00] VITALS: BP 129/81
[2019-10-08 15:00] VITALS: BP 128/73
[2019-10-08 18:00] VITALS: BP 95/62
--- NOTE | 2019-10-08 18:10 | NUR ---
Problems reprioritized. Patient report given, questions answered & plan of care reviewed with ADOLPH Massey/ADOLPH Maradiaga. Pt sitting up in bed eating dinner. All pt needs met at this time.
--- NOTE | 2019-10-08 18:30 | NUR ---
Patient in room PCU 3024. I have received report from Kathy FARFAN and had the opportunity to ask questions and assume patient care. Patient was awake during report and resting comfortably. No acute distress noted.
[2019-10-08 22:00] VITALS: BP 99/74
[2019-10-09] MEDS: morphine 2 MG/ML inj. syringe IV PRN ×4 (00:23→19:58)
[2019-10-09 02:00] VITALS: BP 96/61
--- NOTE | 2019-10-09 04:49 | NUR ---
Orientee documentation: I have reviewed and agree with all interventions, assessments performed and documented by Guerline FARFAN.
--- NOTE | 2019-10-09 04:50 | NUR ---
Student Medication Administration: For this medication-pass time frame, all medication were reviewed, dispensed, administered and documented per hospital policy by []. Addendum: 10/09/19 at 0450 by Shilpa Almodovar RN Orientee Medication Administration: For this medication-pass time frame, all medication were reviewed, dispensed, administered and documented per hospital policy by Guerline FARFAN.
--- NOTE | 2019-10-09 05:58 | NUR ---
Problems reprioritized. Patient report given, questions answered & plan of care reviewed with Kathy FARFAN.
[2019-10-09 06:02] LABS: HEMATOCRIT 24.5 % (35.0-45.0); HEMOGLOBIN 8.1 g/dl (12.0-16.0); MEAN CORPUSCULAR HGB CONC 33.3 g/dL (33.0-36.5); PLATELET COUNT 100 X10'3 (140-440); WHITE BLOOD COUNT 2.9 X10'3 (4.5-11.0)
[2019-10-09 06:05] LABS: MEAN CORPUSCULAR HEMOGLOBIN 29.9 PG (27.0-31.0); MEAN CORPUSCULAR VOLUME 89.8 FL (78-98); MEAN PLATELET VOLUME 8.7 FL (7.4-10.4); RED BLOOD COUNT 2.72 X10'6 (4.20-5.60); RED CELL DISTRIBUTION WIDTH 16.9 % (11.5-14.5)
--- NOTE | 2019-10-09 06:07 | NUR ---
Patient in room PCU 3024. I have received report from ADOLPH Massey/Ashwini RN and had the opportunity to ask questions and assume patient care. Pt sleeping comfortably, no signs of discomfort noted.
[2019-10-09 06:19] LABS: ALANINE AMINOTRANSFERASE 62 U/L (12-78); ALBUMIN 2.4 G/DL (3.4-5.0); ALBUMIN/GLOBULIN RATIO 0.8 (1.1-1.5); ALKALINE PHOSPHATASE 226 IU/L (46-116); ANION GAP 7 (8-16); ASPARTATE AMINO TRANSFERASE 100 U/L (10-37); BILIRUBIN,TOTAL 2.6 MG/DL (0.1-1.0); BLOOD UREA NITROGEN 60 MG/DL (7-18); BUN/CREATININE RATIO 21.3 (6.6-38.0); CALCIUM 8.4 MG/DL (8.5-10.1); CHLORIDE 94 MMOL/L (99-107); CREATININE 2.82 MG/DL (0.40-0.90); GLUCOSE 102 MG/DL (70-104); MAGNESIUM 1.1 MG/DL (1.5-2.4); PHOSPHORUS 2.5 MG/DL (2.3-4.5); POTASSIUM 3.8 MMOL/L (3.5-5.1); SODIUM 132 MMOL/L (135-145); TOTAL CARBON DIOXIDE 30.6 MMOL/L (24-32); TOTAL PROTEIN 5.3 G/DL (6.4-8.2); eGFR 18 ML/MIN
--- NOTE | 2019-10-09 06:25 | NUR ---
Problems reprioritized. Patient report given, questions answered & plan of care reviewed with Kathy FARFAN.
[2019-10-09 07:00] VITALS: BP 104/74
[2019-10-09 07:03] LABS: ANISOCYTOSIS 1+; PLATELET ESTIMATE DECREASED; TOTAL CELLS COUNTED 100
[2019-10-09] MEDS: pantoprazole 40mg Tablet.DR PO SCH ×2 (07:16→19:57)
[2019-10-09] MEDS: multivitamins, therapeutics tablet PO SCH (07:16)
[2019-10-09] MEDS: thiamine 100mg tablet PO SCH (07:16)
[2019-10-09] MEDS: folic acid 1mg tablet PO SCH (07:16)
[2019-10-09] MEDS: CefTRIAXone/D5W-Rocephin 1gm 50 ML IV SCH (07:16)
[2019-10-09 07:19] LABS: TOXIC GRANULATION 2+
[2019-10-09 11:00] VITALS: BP 106/60
[2019-10-09 15:00] VITALS: BP 119/56
[2019-10-09 18:00] VITALS: BP 98/75
--- NOTE | 2019-10-09 18:09 | NUR ---
Problems reprioritized. Patient report given, questions answered & plan of care reviewed with ADOLPH Ryan/ADOLPH Maradiaga. Pt resting comfortably at bedside report. All pt needs met at this time.
--- NOTE | 2019-10-09 18:10 | NUR ---
Patient in room PCU 3024B. I have received report from ADOLPH Chavez and had the opportunity to ask questions and assume patient care. Patient awake, yet fatigued, for bedside report. Patient on room air and saline locked at this time. Will continue to monitor closely.
--- NOTE | 2019-10-09 18:19 | NUR ---
Patient in room PCU 3024. I have received report from Kathy FARFAN and had the opportunity to ask questions and assume patient care. Patient was resting comfortably.
[2019-10-09 22:00] VITALS: BP 122/73
[2019-10-10 02:00] VITALS: BP 116/76
[2019-10-10] MEDS: morphine 2 MG/ML inj. syringe IV PRN ×5 (02:18→21:47)
[2019-10-10 06:00] VITALS: BP 112/80
[2019-10-10 06:03] LABS: HEMATOCRIT 23.9 % (35.0-45.0); HEMOGLOBIN 7.8 g/dl (12.0-16.0); MEAN CORPUSCULAR HGB CONC 32.8 g/dL (33.0-36.5); MONOCYTES # (AUTO) 0.4 X10'3 (0-0.9); NEUTROPHILS # (AUTO) 1.3 X10'3 (1.8-7.7); WHITE BLOOD COUNT 2.4 X10'3 (4.5-11.0)
[2019-10-10 06:07] LABS: BASOPHILS % (AUTO) 1.1 % (0-1); EOSINOPHILS % (AUTO) 1.9 % (0-6); LYMPHOCYTES # (AUTO) 0.7 X10'3 (1.1-4.8); LYMPHOCYTES % (AUTO) 28.2 % (21-51); MEAN CORPUSCULAR HEMOGLOBIN 30.1 PG (27.0-31.0); MEAN CORPUSCULAR VOLUME 91.8 FL (78-98); MEAN PLATELET VOLUME 8.6 FL (7.4-10.4); MONOCYTES % (AUTO) 14.7 % (2-12); NEUTROPHILS % (AUTO) 54.1 % (42-75); PLATELET COUNT 115 X10'3 (140-440)
[2019-10-10 06:26] LABS: ALANINE AMINOTRANSFERASE 71 U/L (12-78); ALBUMIN 2.3 G/DL (3.4-5.0); ALBUMIN/GLOBULIN RATIO 0.8 (1.1-1.5); ALKALINE PHOSPHATASE 232 IU/L (46-116); ANION GAP 9 (8-16); ASPARTATE AMINO TRANSFERASE 124 U/L (10-37); BILIRUBIN,TOTAL 2.3 MG/DL (0.1-1.0); BLOOD UREA NITROGEN 45 MG/DL (7-18); BUN/CREATININE RATIO 20.2 (6.6-38.0); CALCIUM 7.6 MG/DL (8.5-10.1); CHLORIDE 97 MMOL/L (99-107); CREATININE 2.23 MG/DL (0.40-0.90); GLUCOSE 99 MG/DL (70-104); PHOSPHORUS 2.1 MG/DL (2.3-4.5); POTASSIUM 3.7 MMOL/L (3.5-5.1); SODIUM 134 MMOL/L (135-145); TOTAL CARBON DIOXIDE 28.5 MMOL/L (24-32); TOTAL PROTEIN 5.3 G/DL (6.4-8.2); eGFR 24 ML/MIN
--- NOTE | 2019-10-10 06:29 | NUR ---
ORIENTEE documentation: I have reviewed and agree with all interventions, assessments performed and documented by ADOLPH DOTSON.
--- NOTE | 2019-10-10 06:35 | NUR ---
Problems reprioritized. Patient report given, questions answered & plan of care reviewed with Uday RN. Patient was resting comfortably during report.
[2019-10-10 06:36] LABS: MAGNESIUM 0.8 MG/DL (1.5-2.4)
--- NOTE | 2019-10-10 06:37 | NUR ---
Patient in room PCU 3024. I have received report from Ashwini FARFAN and had the opportunity to ask questions and assume patient care.
--- NOTE | 2019-10-10 06:42 | NUR ---
reported critical mg of 0.8 to Michelle MORALES, received orders for mg 2 g iv x 1 now.
[2019-10-10] MEDS ORDERED: magnesium 2GM in 50ml NS 50 ML IV ONE (07:15)
[2019-10-10 07:46] LABS: TOTAL CELLS COUNTED 100; TOXIC GRANULATION 1+
[2019-10-10 07:47] LABS: ANISOCYTOSIS 1+; PLATELET ESTIMATE DECREASED
[2019-10-10] MEDS: CefTRIAXone/D5W-Rocephin 1gm 50 ML IV SCH (07:48)
[2019-10-10] MEDS: multivitamins, therapeutics tablet PO SCH (07:48)
[2019-10-10] MEDS: pantoprazole 40mg Tablet.DR PO SCH ×2 (07:49→19:31)
[2019-10-10] MEDS: folic acid 1mg tablet PO SCH (07:49)
[2019-10-10] MEDS: thiamine 100mg tablet PO SCH (07:49)
[2019-10-10] MEDS: magnesium Cl slow-release 64mg tablet PO SCH ×2 (10:14→19:31)
[2019-10-10 11:00] VITALS: BP 115/77
--- NOTE | 2019-10-10 12:04 | NUR ---
Initial: Pt admit DX REBEL w/ acute tubular necrosis improving, hyponatremia, GIB, diffuse gastritis, and etoh abuse hx. PO 25-50% avg regular diet partially meeting needs though DX likely to impact PO as well. Receiving thiamin, folic, MVI for etoh and electrolyte replacements per protocol. [facility] 10/08. Will monitor for PO hx and ONS needs this admit. Rec: 1. continue regular diet; encourage PO 2. thiamin, folic, MVI for etoh hx 3. bowel care per rx 4. monitor for ONS needs 5. wt per rx Addendum: 10/10/19 at [address] Amended: Links added.
[2019-10-10 12:08] LABS: FERRITIN 189 NG/ML (8-252)
[2019-10-10 12:23] LABS: % IRON SATURATION 33 % (11-46); IRON 55 UG/DL (49-151); TOTAL IRON BINDING CAPACITY 167 UG/DL (259-388)
[2019-10-10 15:00] VITALS: BP 119/80
[2019-10-10 18:00] VITALS: BP 115/76
--- NOTE | 2019-10-10 18:20 | NUR ---
Patient in room PCU 3024. I have received report from Uday FARFAN and had the opportunity to ask questions and assume patient care.
--- NOTE | 2019-10-10 18:25 | NUR ---
Problems reprioritized. Patient report given, questions answered & plan of care reviewed with Nidhi FARFAN.
[2019-10-10 22:00] VITALS: BP 109/79
[2019-10-11 02:00] VITALS: BP 111/85
[2019-10-11] MEDS: morphine 2 MG/ML inj. syringe IV PRN ×4 (02:54→15:42)
[2019-10-11 04:58] LABS: HEMOGLOBIN 7.7 g/dl (12.0-16.0)
[2019-10-11 05:02] LABS: HEMATOCRIT 23.6 % (35.0-45.0); MEAN CORPUSCULAR HEMOGLOBIN 30.1 PG (27.0-31.0); MEAN CORPUSCULAR HGB CONC 32.6 g/dL (33.0-36.5); MEAN CORPUSCULAR VOLUME 92.4 FL (78-98); MEAN PLATELET VOLUME 8.3 FL (7.4-10.4); PLATELET COUNT 134 X10'3 (140-440); RED BLOOD COUNT 2.56 X10'6 (4.20-5.60)
[2019-10-11 05:11] LABS: WHITE BLOOD COUNT 2.5 X10'3 (4.5-11.0)
[2019-10-11 05:18] LABS: ALANINE AMINOTRANSFERASE 79 U/L (12-78); ALBUMIN 2.2 G/DL (3.4-5.0); ALBUMIN/GLOBULIN RATIO 0.7 (1.1-1.5); ALKALINE PHOSPHATASE 214 IU/L (46-116); ANION GAP 6 (8-16); ASPARTATE AMINO TRANSFERASE 110 U/L (10-37); BILIRUBIN,TOTAL 1.8 MG/DL (0.1-1.0); BLOOD UREA NITROGEN 35 MG/DL (7-18); BUN/CREATININE RATIO 16.5 (6.6-38.0); CALCIUM 7.3 MG/DL (8.5-10.1); CHLORIDE 99 MMOL/L (99-107); CREATININE 2.12 MG/DL (0.40-0.90); GLUCOSE 109 MG/DL (70-104); PHOSPHORUS 2.4 MG/DL (2.3-4.5); POTASSIUM 3.7 MMOL/L (3.5-5.1); SODIUM 134 MMOL/L (135-145); TOTAL CARBON DIOXIDE 29.1 MMOL/L (24-32); TOTAL PROTEIN 5.2 G/DL (6.4-8.2); eGFR 25 ML/MIN
[2019-10-11 05:21] LABS: MAGNESIUM 0.7 MG/DL (1.5-2.4)
--- NOTE | 2019-10-11 05:30 | NUR ---
Re: Stephanie Brown rm 0423 B critical value Magnesium 0.7. Patient has slow-mag bid already ordered started yesterday. Thanks!
[2019-10-11 06:00] VITALS: BP 112/83
--- NOTE | 2019-10-11 06:11 | NUR ---
Problems reprioritized. Patient report given, questions answered & plan of care reviewed with Uday FARFAN.
--- NOTE | 2019-10-11 06:25 | NUR ---
Patient in room PCU 3024. I have received report from Nidhi FARFAN and had the opportunity to ask questions and assume patient care.
[2019-10-11 07:12] LABS: PLATELET ESTIMATE DECREASED; TOTAL CELLS COUNTED 100
[2019-10-11 07:13] LABS: ANISOCYTOSIS 1+; POLYCHROMASIA 1+
[2019-10-11] MEDS: multivitamins, therapeutics tablet PO SCH (07:15)
[2019-10-11] MEDS: folic acid 1mg tablet PO SCH (07:15)
[2019-10-11] MEDS: magnesium Cl slow-release 64mg tablet PO SCH (07:15)
[2019-10-11] MEDS: thiamine 100mg tablet PO SCH (07:15)
[2019-10-11] MEDS: pantoprazole 40mg Tablet.DR PO SCH (07:15)
[2019-10-11] MEDS: CefTRIAXone/D5W-Rocephin 1gm 50 ML IV SCH (07:25)
[2019-10-11] MEDS ORDERED: magnesium 2GM in 50ml NS 50 ML IV ONE (09:45)
[2019-10-11 11:00] VITALS: BP 122/81
[2019-10-11] MEDS ORDERED: PHENYLEPH/MIN OIL/PETROLAT hemorrhoid oint 57GM tube RC PRN (11:50)
--- NOTE | 2019-10-11 11:51 | NUR ---
received orders to start preparation h ointment prn for hemorrhoids per dr. rod
[2019-10-11] MEDS ORDERED: PHEN57OI23 RC (13:12)
[2019-10-11] MEDS ORDERED: thiamine tablet PO (13:12)
[2019-10-11] MEDS ORDERED: MAGN64TA10 PO (13:12)
[2019-10-11] MEDS ORDERED: PANT40TA4 PO (13:12)
[2019-10-11] MEDS ORDERED: MULT-25 PO (13:12)
--- NOTE | 2019-10-11 17:20 | NUR ---
pt is stable for discharge per md orders, discharge instructions reviewed w/ pt and all questions answered, new med prescriptions called in to [facility] pharmacy, tele monitor dc'ed and returned, piv dc intact, clean dry dressing in place, pt discharges to home @ 1635, wheeled down to [facility] w/ hospital staff to private vehicle w/ family, all belongings w/ pt at time of discharge.
== END 2019-10-11 16:37 | disposition home or self-care (01) | DRG 241 ==
LOC: ER 05:30 → ED HOLD 06:38 → CICU 2S 07:53 → PCU 3S 10-07 12:50
PROVIDERS: ADMIT Internal Medicine Critical Care Medicine; ATTEND Internal Medicine Critical Care Medicine
PROC: 0DB68ZX Excision of Stomach, Via Natural or Artificial Opening Endoscopic, Diagnostic (ICD-10-PCS; principal; 2019-10-05)
DX: K29.71 Gastritis, unspecified, with bleeding (principal); N17.0 Acute kidney failure with tubular necrosis; D64.9 Anemia, unspecified; E83.51 Hypocalcemia; E86.1 Hypovolemia; E87.1 Hypo-osmolality and hyponatremia; E87.2 Acidosis; E87.5 Hyperkalemia; F15.10 Other stimulant abuse, uncomplicated; G93.40 Encephalopathy, unspecified; I42.9 Cardiomyopathy, unspecified; I50.9 Heart failure, unspecified; K20.9 Esophagitis, unspecified; K64.9 Unspecified hemorrhoids; K76.7 Hepatorenal syndrome; M16.12 Unilateral primary osteoarthritis, left hip; Z96.642 Presence of left artificial hip joint; W06.XXXA Fall from bed, initial encounter; Y93.89 Activity, other specified; Y92.89 Other specified places as the place of occurrence of the external cause; Y99.8 Other external cause status
CPT/HCPCS: 36415; 43239; 71045; 73502; 73610; 76775; 80048; 80053; 81001; 81025; 82272; 82570; 82728; 82948; 83540; 83550; 83605; 83735; 83880; 83935; 84100; 84145; 84300; 85007; 85025; 85027; 85610; 85730; 86885; 86900; 86901; 87040; 87088; 87207; 93005; 99152; 99291; C9113; G0378; J0696; J2250; J2270; J2354; J2405; J3010; J3411; J3475; J7030; J7050; J7060